=== PATIENT | female | born 1940 ===

== ENCOUNTER 2016-06-29 09:48 | Inpatient (IN) | payer OTHER ==
[2016-05-31 13:20] VITALS: BMI 27.0
--- NOTE | 2016-05-31 13:53 | PAT Medication Instructions ---
Service Date May 31, 2016. Current Home Medication List Aspirin (Aspirin Ec), 81 MG PO HS Calcium/Vitamin D (Os-Bipin 500 Plus D), 1 TAB PO QAM Fiber (Fiber Formula), 1 TAB PO BID Fish Oil ([place]-3), 1 CAP PO BID Vjlpgklussu-Cwioghpbgcu-Cex C- (Glucosamine Chondroitin), 1 TAB PO BID Levothyroxine Sodium (Levothyroxine Sodium), 150 MCG PO QAM Meloxicam (Mobic), 7.5 MG PO BID PRN for Pain Multivitamin (Multivitamin), 1 TAB PO QAM Triamcinolone Acet (Triamcinolone Acetonide), 0.1 % TOP PRN PRN for Affected Skin Folds Medication Instructions For Your Scheduled Surgery - Hold the following medications 10 days prior to surgery: Fish Oil ([place]-3), 1 CAP PO BID Ldfepvpedyg-Xssgrgbflgg-Kqh C- (Glucosamine Chondroitin), 1 TAB PO BID - Hold the following medications 24 hours prior to surgery: Triamcinolone Acet (Triamcinolone Acetonide), 0.1 % TOP PRN PRN for Affected Skin Folds - Hold the following medications the morning of surgery: Multivitamin (Multivitamin), 1 TAB PO QAM Fiber (Fiber Formula), 1 TAB PO BID Calcium/Vitamin D (Os-Bipin 500 Plus D), 1 TAB PO QAM Meloxicam (Mobic), 7.5 MG PO BID PRN for Pain (takes rarely- not told to stop by surgeon) - Take the following medications the morning of surgery with a sip of water: Levothyroxine Sodium (Levothyroxine Sodium), 150 MCG PO QAM - Take the following medications as scheduled the night before surgery: Fiber (Fiber Formula), 1 TAB PO BID Aspirin (Aspirin Ec), 81 MG PO HS If you have any questions please call us at [phone] or [phone] ( [place]) or [phone]
[2016-05-31 14:38] LABS: BASO % 0.6 %; BASO ABS # 0.04 K/uL (0-0.2); COMPLETE YES; EOS % 6.1 %; HEMATOCRIT 38.2 % (37-47); LYMPH % 32.8 %; LYMPH ABS # 2.22 K/uL (1.2-3.4); MEAN CELL VOLUME 87.8 fL (80-100); MEAN CORPUSCULAR HEMOGLOBIN 30.1 pg (25-34); MEAN CORPUSCULAR HGB CONC 34.3 g/dl (32-36); MEAN PLATELET VOLUME 11.5 fL (7.4-10.4); MONO % 6.9 %; NEUT % 53.6 %; PLATELET COUNT 212 K/uL (130-400); RED BLOOD COUNT 4.35 M/uL (4.2-5.4); WHITE BLOOD COUNT 6.77 K/uL (4.8-10.8)
[2016-05-31 14:47] LABS: PARTIAL THROMBOPLASTIN RATIO 1.1; PROTHROMBIN TIME (PATIENT) 10.7 SECONDS (9.0-12.0)
[2016-05-31 15:03] LABS: BUN/CREATININE RATIO 29.3 (10-20); CALCIUM 9.3 mg/dl (8.5-10.1); CREATININE 0.76 mg/dl (0.60-1.20); POTASSIUM 4.4 mmol/L (3.5-5.1)
--- NOTE | 2016-05-31 15:09 | DIAGNOSTIC IMAGING REPORT ---
CHEST PREADMISSION(PA/LAT) CLINICAL HISTORY: Preoperative chest COMPARISON STUDY: No previous studies for comparison. FINDINGS: The cardiac and mediastinal contours are normal. There is no evidence of focal pulmonary consolidation. There is no evidence of failure. No pleural effusions are visualized.[ IMPRESSION: No active disease in the chest. Electronically signed by: Kevin Membreno M.D. 05/31/2016 3:07 PM Dictated Date/Time: 05/31/2016 3:06 PM
--- NOTE | 2016-06-23 21:30 | HISTORY & PHYSICAL EXAMINATION ---
DATE OF ADMISSION: 06/29/2016 CHIEF COMPLAINT: Bilateral knee pain, right side greater than left. HISTORY OF PRESENT ILLNESS: This is a 76-year-old white female, who presents for surgical treatment of her right knee. She has got a long history of bilateral knee pain and discomfort, right side greater than left. She had been treated by my partner Dr. Aparicio. She has had an injection which provided some very temporary relief. She has also been on different anti-inflammatories including most recently Mobic which provides minimal relief. Pain has increased with weightbearing. There is global pain. Her knee gives out intermittently. She has fallen several times. She would like to have her right knee replaced. PAST MEDICAL HISTORY: 1. Hypothyroidism. 2. Arthritis. PAST SURGICAL HISTORY: Includes: 1. Tonsillectomy. 2. Bunion surgery bilaterally. 3. Ear surgery. ALLERGIES: None. CURRENT MEDICINES: Include: 1. Levothyroxine 150 mcg a day. 2. Aspirin 81 mg a day. 3. Calcium with D. 4. Fiber Formula. 5. Fish oil. 6. Glucosamine. 7. Multivitamin. 8. Meloxicam. SOCIAL HISTORY: This is a 76-year-old female. She is from [place]. She is . She does not smoke. FAMILY HISTORY: Noncontributory. REVIEW OF SYSTEMS: Negative for diabetes, neurologic problems, vascular problems or bleeding disorders. Denies any chest pain. No shortness of breath. No history of DVT or PE. PHYSICAL EXAMINATION: GENERAL: Reveals a healthy pleasant, middle-aged female. She looks to be in good health. HEENT: Benign. NECK: Supple. No lymphadenopathy. LUNGS: Clear to auscultation. HEART: Regular rate and rhythm. ABDOMEN: Soft, nontender and nondistended. EXTREMITIES: Grossly neurovascularly intact except as follows: Examination of the right leg reveals the patient walks independently. She has got varus alignment to her knee. She does limp on the right side. She has a little bit of varus thrust with weightbearing. She has got bony hypertrophy medially. Range of motion is 5 to 100. Fairly stiff knee with flexion. No instability. No pain with hip motion. X-RAYS: X-rays of the right knee were reviewed. It shows advanced right knee DJD. She has got complete loss of medial joint space. She has got osteophytes extensively on the medial side of her knee as well as she has got significant subchondral sclerosis. ASSESSMENT: A 76-year-old white female, with advanced bilateral knee degenerative joint disease, right side more symptomatic than the left. She has failed conservative treatments and would like to have her right knee replaced. PLAN: We are going to take her to the operating room and do a right total knee replacement. The risks and benefits of this procedure were explained to the patient including but not limited to DVT, PE, , infection, neurological injury, vascular injury, bleeding problems, failure to relieve her symptoms, incomplete relief of symptoms, need for further surgery in the future, fracture, leg length inequality, nerve palsy etc. The patient understands and desires to proceed. Informed consent was obtained. The patient [place] [facility]. She will likely go to outpatient therapy and not do home health. Her can take her to therapy. We did talk to her about stopping her Mobic 10 days preop. The patient had preoperative workup. Chest x-ray showed no acute disease. EKG was normal. Labs were all normal. We will proceed as above.
[~2016-06-29] VITALS: Ht 157.5 cm; Wt 68.6 kg
[2016-06-29] VITALS (7 sets, daily range): BP systolic 99–131; BP diastolic 58–74; PULSE 66–86; TEMP 36.2–36.5; O2SAT 95–100; Ht 157.5 cm; Wt 68.6 kg
[~2016-06-29 09:48] MED LIST: ACETAMINOPHEN 500 MG TAB PO SCH; ASPI81TA28 PO; BUPIVACAINE 0.25% 30 ML VIAL ONE; BUPIVACAINE 0.5 % 5 MG/1 ML PF 10ML VIAL ONE; BUPIVACAINE LIPOSOME 266 MG, BUPIVACAINE/EPINEPHRINE INJ 50 ML, SODIUM CHLORIDE 0.9% PF... INFIL SCH; CALC500C70 PO; CEFAZOLIN 2000 MG/60 ML D5W 60 ML IV SCH; FAMOTIDINE 20 MG TAB PO SCH; FIBE1CAP PO; GABAPENTIN 300 MG CAP PO SCH; GLUCTAB7 PO; LACTATED RINGER'S 1000ML 1,000 ML IV SCH; LACTATED RINGER'S 1000ML 500 ML IV ONE; LACTATED RINGER'S 1000ML IV SCH; LEVO150T9 PO; MELO7.5T5 PO; METOCLOPRAMIDE HCL 10 MG TAB PO SCH; MULT-506 PO; OMEG10007 PO; SCOPOLAMINE 1.5 MG TDSY TD SCH; TRANEXAMIC ACID INJ 1,000 MG in SODIUM CHLORIDE 0.9% 100ML 100 ML IV SCH; TRIA0.5C4 TOP
--- NOTE | 2016-06-29 10:43 | History & Physical Bridge Note ---
H&P Re-Evaluation Bridge Note: I have examined the patient, reviewed the History & Physical and in the interval since the performance of the History & Physical I have noted the following changes of clinical significance: No changes noted
[2016-06-29] MEDS ORDERED: MIDAZOLAM HCL 1 MG/ML 2ML VIAL ONE (11:37)
[2016-06-29] MEDS ORDERED: FENTANYL CITRATE INJ 50 MCG/1 ML 2 ML VIAL ONE (11:37)
[2016-06-29] MEDS ORDERED: AMX500 PO (11:44)
[2016-06-29] MEDS ORDERED: EpHEDrine SULFATE INJ 50 MG/ML AMP ONE (12:38)
[2016-06-29] MEDS ORDERED: BACITRACIN 50000 UNIT VIAL ONE (12:57)
[2016-06-29] MEDS ORDERED: SODIUM CHLORIDE 0.9% PF 50 ML VIAL ONE (12:57)
[2016-06-29] MEDS ORDERED: BUPIVACAINE/EPINEPHRINE 0.25% 1:200,000 30 ML VIAL ONE (12:57)
[2016-06-29] MEDS ORDERED: BUPIVACAINE LIPOSOME 1/3% 266 MG/20 ML VIAL INFIL ONE (12:57)
[2016-06-29] MEDS ORDERED: HYDROmorphone INJ 2 MG/ML SYR/VIAL IV PRN (13:15)
[2016-06-29] MEDS ORDERED: ATROPINE SULFATE 0.1 MG/ML 5ML SYR IV PRN (13:15)
[2016-06-29] MEDS ORDERED: ONDANSETRON INJ 2 MG/ML 2 ML VIAL IV PRN ×2 (13:15→15:00)
[2016-06-29] MEDS ORDERED: PHENYLEPHRINE 100MCG/ML 5ML SYR IV PRN (13:15)
[2016-06-29] MEDS ORDERED: EpHEDrine SULFATE INJ 50 MG/ML AMP IV PRN (13:15)
[2016-06-29] MEDS ORDERED: PROPOFOL IV EMULSION 10 MG/ML 20 ML VIAL IV ONE (13:33)
[2016-06-29] MEDS ORDERED: PHENYLEPHRINE HCL INJ 10 MG/ML VIAL ONE (14:00)
--- NOTE | 2016-06-29 14:49 | [facility] Post Operative Brief Note ---
Immediate Operative Summary Operative Date Jun 29, 2016. Pre-Operative Diagnosis Advanced Right Knee Degenerative Joint Disease Post-Operative Diagnosis Advanced Right Knee Degenerative Joint Disease Procedure(s) Performed Right Total Knee Arthroplasty Surgeon Dr. Meade Presentation Team Member Surgeon(s) ALLI Manley Estimated Blood Loss 50 ml Findings Right Knee DJD Fluids (cc crystalloids) 1000 cc Specimens A. Right Knee Bone and Tissue Drains None Anesthesia Spinal Complication(s) None Disposition Recovery Room / PACU
[2016-06-29] MEDS ORDERED: METOCLOPRAMIDE HCL INJ 5 MG/ML 2 ML VIAL IV PRN (15:00)
[2016-06-29] MEDS ORDERED: ZOLPIDEM TARTRATE 5 MG TAB PO PRN (15:00)
[2016-06-29] MEDS ORDERED: DiphenhydrAMINE HCL 50 MG/ML VIAL IV PRN (15:00)
[2016-06-29] MEDS ORDERED: SILVER SULFADIAZINE 1% CR 50 GM JAR EXT PRN (15:00)
[2016-06-29] MEDS ORDERED: ALUMINUM/MAGNESIUM/SIMETH (MAALOX MAX) 30 ML UDC PO PRN (15:00)
[2016-06-29] MEDS ORDERED: MAGNESIUM HYDROXIDE SUSP 30 ML UDC PO PRN (15:00)
[2016-06-29] MEDS ORDERED: BISACODYL 10 MG SUPP PR PRN (15:00)
[2016-06-29] MEDS ORDERED: MoRPHine SULFATE 2 MG/ML CARP IV PRN (15:00)
[2016-06-29] MEDS ORDERED: TRAMADOL HCL 50 MG TAB PO PRN (15:00)
--- NOTE | 2016-06-29 15:15 | DIAGNOSTIC IMAGING REPORT ---
TWO VIEWS RIGHT KNEE CLINICAL HISTORY: Postoperative examination. FINDINGS: AP and crosstable lateral portable views of the right knee are obtained. A right knee arthroplasty is in near anatomic alignment. There has been undersurface remodeling of the patella. No acute fracture is seen. There are expected postoperative changes around the knee including skin clips, soft tissue edema, and subcutaneous gas. IMPRESSION: Expected postoperative changes status post right knee arthroplasty. No acute fracture is seen. Electronically signed by: Iam Treadwell M.D. 06/29/2016 3:13 PM Dictated Date/Time: 06/29/2016 3:13 PM
--- NOTE | 2016-06-29 15:44 | Anesthesiology Progress Note ---
Anesthesia Post Op Note Date & Time Jun 29, 2016 at 15:45 Vital Signs Pain Intensity: 0 Vital Signs Past 12 Hours Date Time Temp Pulse Resp B/P Pulse Ox O2 Delivery O2 Flow Rate FiO2 06/29/16 15:25 36.5 82 18 113/59 98 Nasal Cannula 2 06/29/16 15:15 86 18 108/59 98 Nasal Cannula 2 06/29/16 15:05 83 18 114/62 99 Nasal Cannula 2 06/29/16 14:56 36.6 86 15 118/59 100 Nasal Cannula 2 06/29/16 10:16 36.4 75 18 131/62 95 Room Air Notes Mental Status: alert / awake / arousable, participated in evaluation Pt Amnestic to Procedure: Yes Nausea / Vomiting: adequately controlled Pain: adequately controlled Airway Patency, RR, SpO2: stable & adequate BP & HR: stable & adequate Hydration State: stable & adequate Anesthetic Complications: no major complications apparent
[2016-06-29] MEDS: CHECK SCOPOLAMINE PATCH PLACEMENT SCH ×2 (16:00→23:44)
--- NOTE | 2016-06-29 16:42 | OPERATIVE REPORT ---
DATE OF OPERATION: 06/29/2016 PREOPERATIVE DIAGNOSIS: Right knee degenerative joint disease. POSTOPERATIVE DIAGNOSIS: Same. PROCEDURE PERFORMED: Right cemented posterior stabilized total knee arthroplasty. SURGEON: Bienvenido Meade M.D. PROFESSOR OF MUSIC: Shaun Grewal PA-C. COMPLICATIONS: None. ESTIMATED BLOOD LOSS: 50 mL. FLUID REPLACEMENT: 1000 mL crystalloid fluid replacement. ANESTHESIA: Spinal with adductor canal block. DRAINS: None. SPECIMENS: Right knee sent for pathology. TOURNIQUET TIME: 52 minutes at 300 mmHg. OPERATIVE INDICATIONS: The patient is a 76-year-old very active female who has had a long history of bilateral knee pain and discomfort, right side greater than left. She has been through extensive conservative treatment by my partner Dr. Aparicio. Pain has become more debilitating. She failed conservative care and elected to proceed with right total knee arthroplasty. OPERATIVE FINDINGS: Operative findings revealed advanced right knee DJD. She had grade 4 [id number] disease of the medial and patellofemoral compartments. This was most severe in the medial side. She had eburnation of the medial femoral condyle with punctate bleeding of the medial femoral condyle. She had eburnation of the medial tibial plateau and large osteophytes off the medial side of the distal femur as well as the proximal tibia. Moderate size joint effusion. She had a fixed varus deformity to her knee. OPERATIVE IMPLANTS: Operative implants consisted of: 1. Biomet Vanguard size 62.5 right posterior stabilized femoral component. 2. Biomet size 67 tibial tray. 3. A 10 mm posterior stabilized polyethylene insert. 4. A 31 x 8 all poly patella. OPERATIVE PROCEDURE: The patient taken to the operating room, identified and placed on the operating table in supine position. All contact areas were appropriately padded. IV antibiotics were provided by anesthesia team. A spinal anesthetic had been implemented in the holding area. Mayo catheter was placed in sterile fashion. Right thigh tourniquet was then placed and the right lower extremity was then prepped and draped in the usual sterile fashion. The right leg was elevated and exsanguinated with Esmarch and tourniquet was placed at 300 mmHg. An anterior approach to the right knee was then performed through a longitudinal incision centered over the patella. Sharp dissection was carried down through the subcutaneous tissues down to the level of the extensor mechanism. A medial parapatellar arthrotomy incision was made. Some subperiosteal dissection was carried out medially. The fat pad was resected from beneath the patellar tendon. The lateral patellofemoral ligament was released. I elected to cut the patella first. The patella was cleaned of soft tissues. Patella thickness measured 18 mm and was cut down to 12. It was sized to a size 31 patella. The lateral osteophyte was removed. I did not drill lug holes until the end of the case. The patella was everted and knee was flexed. The osteophytes were taken off the distal femur. The ACL and PCL were then released from the distal femur and the tibia subluxated anteriorly. The external tibial alignment jig was then placed in the anterior face of the tibia and adjusted 14 mm medially. Proximal tibial cut was made to remove about a millimeter or 2 of bone from the most deficient aspect of the medial tibial plateau. Some osteophytes were taken off medial and posteromedially. Tibia was sized to a size 67. Attention was then drawn to the femur. The distal femur was entered with a sharp drill. Intramedullary canal was suctioned. A right 5 degree valgus cutting guide was placed. The distal femoral cutting block was pinned to take an additional 3 mm of bone off the distal femur. The femur was then sized to a size 62.5. We did downsize this just slightly. The AP cutting block was pinned parallel to the epicondylar axis, which was 3 degrees of external rotation. The anterior cut, anterior chamfer, posterior cut, posterior chamfer cuts were made. Box cutting guide was placed and adjusted slightly lateral and the box cut was made. The knee was flexed. The remnants of the medial and lateral meniscus were excised. The osteophytes were taken off the posterior aspect of the femur. Trial femoral component was placed. Tibial tray was pinned in maximum external rotation and the drill and stem punch were used to create defect in proximal tibia for the tibial tray. We then trialed the knee and the 10 mm insert fit most appropriately. Attention was then drawn back to the patella. The patella was now prepared and the lug holes were drilled. The 31 patella was placed. Knee was taken through range of motion and patella tracked nicely with no thumbs test. Attention was then drawn toward placement of permanent components. All trial components were removed. Bone plug was placed in the distal femur to limit blood loss. The wound was irrigated extensively. A double batch of Palacos G cement was mixed. A left size 62.5 posterior stabilized femoral component, size 67 tibial tray, 10 mm posterior stabilized polyethylene insert, and a 31 x 8 all poly patella then cemented in place. Knee was brought out into full extension until cement hardened. A final cement check was then performed. Pericapsular tissues were injected with a total of 100 mL of a combination of 20 mL of Exparel, 30 mL of normal saline, 50 mL of 0.25% Marcaine with epinephrine. The patient did receive 1 gram of tranexamic acid. The tourniquet was then let down for a tourniquet time of 52 minutes. Hemostasis was assured with use of electrocautery. The wounds were once again irrigated. The extensor mechanism was then closed with a combination of #1 PDS suture and #1 Vicryl suture in a [id number] fashion. Extensor mechanism was checked and found to be intact. Subcutaneous tissues were then closed with 2-0 Dexon suture in a buried interrupted fashion. Skin was then closed with skin betito. Leg was then cleaned and dried and a sterile dressing of Xeroform, 4 x 4, sterile cast padding and Octavio bandage were applied. The patient then transferred to the recovery room in stable condition. The patient tolerated the procedure well with no complications. All needle and sponge counts were correct at the end of the operation. I attest to the content of the Intraoperative Record and any orders documented therein. Any exceptio ns are noted below.
[2016-06-29] MEDS: D5W AND 1/2NSS + 20MEQ KCL 1,000 ML IV SCH (18:12)
[2016-06-29] MEDS: KETOROLAC TROMETHAMINE 15 MG/ML VIAL IV. SCH ×2 (18:14→23:44)
[2016-06-29] MEDS: FERROUS GLUCONATE 324 MG TAB PO SCH (18:34)
[2016-06-29] MEDS: ACETAMINOPHEN 500 MG TAB PO SCH ×2 (18:34→21:32)
[2016-06-29] MEDS: CEFAZOLIN IV 1,000 MG in DEXTROSE 5% 50ML 50 ML IV SCH (19:27)
[2016-06-29] MEDS ORDERED: TRANEXAMIC ACID INJ 1,000 MG in SODIUM CHLORIDE 0.9% 100ML 100 ML IV SCH (21:00)
[2016-06-29] MEDS: AMOXICILLIN 500 MG CAP PO SCH (21:02)
[2016-06-29] MEDS: DOCUSATE SODIUM 100 MG CAP PO SCH (21:02)
[2016-06-29] MEDS: ASPIRIN 325 MG ECTAB PO SCH (21:03)
[2016-06-29] MEDS: CALCIUM POLYCARBOPHIL 1 TAB PO SCH (21:03)
[2016-06-30] VITALS (7 sets, daily range): BP systolic 88–123; BP diastolic 51–69; PULSE 69–82; TEMP 36.2–36.7; O2SAT 94–99
[2016-06-30] MEDS: CEFAZOLIN IV 1,000 MG in DEXTROSE 5% 50ML 50 ML IV SCH (03:37)
[2016-06-30] MEDS: D5W AND 1/2NSS + 20MEQ KCL 1,000 ML IV SCH ×2 (03:37→13:00)
[2016-06-30] MEDS: LEVOTHYROXINE 150 MCG TAB PO SCH (05:31)
[2016-06-30] MEDS: ACETAMINOPHEN 500 MG TAB PO SCH ×3 (05:31→22:01)
[2016-06-30] MEDS: KETOROLAC TROMETHAMINE 15 MG/ML VIAL IV. SCH ×4 (05:32→23:51)
[2016-06-30 06:40] LABS: HEMATOCRIT 30.2 % (37-47); MEAN CORPUSCULAR HEMOGLOBIN 29.3 pg (25-34); MEAN CORPUSCULAR HGB CONC 34.1 g/dl (32-36); MEAN PLATELET VOLUME 10.5 fL (7.4-10.4); PLATELET COUNT 211 K/uL (130-400); RED BLOOD COUNT 3.51 M/uL (4.2-5.4); WHITE BLOOD COUNT 8.05 K/uL (4.8-10.8)
[2016-06-30 07:04] LABS: BUN/CREATININE RATIO 15.5 (10-20); CREATININE 0.82 mg/dl (0.60-1.20); POTASSIUM 4.1 mmol/L (3.5-5.1)
[2016-06-30] MEDS: CHECK SCOPOLAMINE PATCH PLACEMENT SCH ×3 (08:00→23:48)
[2016-06-30] MEDS: FERROUS GLUCONATE 324 MG TAB PO SCH ×3 (08:49→17:48)
[2016-06-30] MEDS: DOCUSATE SODIUM 100 MG CAP PO SCH ×2 (08:50→22:01)
[2016-06-30] MEDS: AMOXICILLIN 500 MG CAP PO SCH ×2 (08:50→22:00)
[2016-06-30] MEDS: CALCIUM 600MG + VIT D 400 IU TAB PO SCH (08:50)
[2016-06-30] MEDS: MULTIVITAMIN TAB PO SCH (08:51)
[2016-06-30] MEDS: CALCIUM POLYCARBOPHIL 1 TAB PO SCH ×2 (08:51→22:01)
[2016-06-30] MEDS: ASPIRIN 325 MG ECTAB PO SCH ×2 (08:51→22:01)
[2016-06-30] MEDS: PANTOprazole SOD 40 MG TAB PO SCH (08:52)
[2016-06-30] MEDS ORDERED: MULTIVITAMIN TAB PO SCH (09:00)
[2016-06-30] MEDS ORDERED: FRRG PO (19:23)
[2016-06-30] MEDS ORDERED: ULT50X PO (19:23)
[2016-06-30] MEDS ORDERED: ASPEC325 PO (19:23)
[2016-06-30] MEDS ORDERED: ACET-1138 PO (19:23)
--- NOTE | 2016-06-30 19:24 | Discharge Instructions ---
Discharge Instructions Admission Reason for Admission: Right Knee Degenerative Joint Disease Discharge Discharge Diagnosis / Problem: Right Knee Replacement Discharge Goals Goal(s): Decrease discomfort, Improve function, Increase independence, Improve disease control, Therapeutic intervention Activity Recommendations Activity Limitations: per Instructions/Follow-up section Weightbearing Status: Right weightbearing . Instructions / Follow-Up Instructions / Follow-Up ACTIVITY RECOMMENDATIONS: Physical Therapy: * You will go to physical therapy three times each week for four to six weeks after your surgery in order to regain your knee range of motion and to retrain your knee to work properly. * It is just as important to make sure you are getting your knee perfectly straight as it is to regain your knee bend. * Taking a pain pill an hour before therapy can help you have a more productive and comfortable therapy session. Home Exercise: * You were shown a series of exercises (heel props, heel slides, etc.) in the hospital. Do these exercises three to four times each day including the exercises you were shown in physical therapy. Walking: * Get up and walk several times each day. For the first four weeks, try not to stand or walk for more than one hour at a time. If you do stand or walk for more than one hour, you will not hurt anything, but your knee and leg will likely swell. * As you feel comfortable, you may change from the walker or crutches to a cane and then to independent walking. MEDICATIONS: New Medicine: * You will likely be taking one or more of these medications: 1. Tramadol/Ultram - A quick and shorter-acting pain medication. Take one to two tablets every four to six hours to lessen your pain. 2. Iron Sulfate - Take two times each day for the month after surgery to help you replace the blood lost during surgery. 3. Aspirin - Thins your blood to lessen the chance of forming a blood clot. * The most common side effects of pain medicine and iron are nausea and constipation. If nausea or constipation is too much of a problem or if you have any questions about your new medicines or doses, call [facility] at [phone]. We will try to help you manage these issues. VERY IMPORTANT TO READ AND REVIEW" Pain: * The immediate post-operative period after knee replacement surgery is often quite painful. * You are given a prescription for pain medicine. You should take it, as directed, when you need it, especially before physical therapy and before going to bed. Pain that interferes with sleep is very common and can last several months. * You will likely need pain medicine for the first four to six weeks. It will not stop all of the pain. The pain will lessen and as you feel better, you may change to milder pain medicine such as Tylenol. * The most common side effects of pain medicine are nausea and constipation, so don't take more than you need. SPECIAL CARE INSTRUCTIONS: TEDs/Elastic Stockings: * The white elastic stockings help limit swelling and prevent blood clots from forming in your legs. The more you wear them, the more they work. * Wear them for six weeks after knee replacement surgery and four weeks after partial knee replacement. Prevention of Infection: * Take antibiotics one hour before any dental cleaning, dental work, urological procedure, gastrointestinal procedure or any invasive surgery in order to prevent your new joint from getting infected. * You may get the antibiotics from the doctor performing the procedure or you may call our office at before and we will call in a prescription to the pharmacy of your choice. Things to Watch For: * Drainage from the incision site that occurs more than one week after your surgery. * Severely increased knee/leg pain or swelling. * Increased redness at the incision site. * Fever above 102 degrees Fahrenheit. * Unusual chest pain or shortness of breath. * Unusual pain or burning with urination. Call [facility] at with any of the above problems or if you have any questions about your medicines or recovery. FOLLOW UP VISIT: Make an appointment to see your doctor for approximately two weeks after surgery for a progress check and staple removal by calling the office at . Current Hospital Diet Patient's current hospital diet: Regular Diet Discharge Diet Recommended Diet: Regular Diet Procedures Procedures Performed: Right Total Knee Arthroplasty Pending Studies Studies pending at discharge: no Medical Emergencies . Who to Call and When: Medical Emergencies: If at any time you feel your situation is an emergency, please call [phone] immediately. . Non-Emergent Contact Non-Emergency issues call your: Surgeon . "Provider Documentation" section prepared by Bienvenido Meade. VTE Core Measure Inpt VTE Proph given/why not?: Other Anticoagulation, T.E.D. Stockings, SCD's
--- NOTE | 2016-06-30 19:38 | PROGRESS NOTE ---
DATE: 06/30/2016 SUBJECTIVE: A 76-year-old white female, postop day #1 from right knee replacement. She is doing well. Pain is controlled. She denies any chest pain or shortness of breath. Not feeling dizzy or lightheaded. OBJECTIVE: VITAL SIGNS: Temperature 36.7. Vital signs are stable. GENERAL: Reveals a pleasant, elderly female. She is sitting up in bed, awake, alert and oriented. LUNGS: Clear to auscultation. HEART: Regular rate and rhythm. ABDOMEN: Soft, nontender, nondistended. EXTREMITIES: Grossly neurovascularly intact except as follows. Examination of the right lower extremity reveals the leg to be well aligned. Dressing is clean, dry and intact. She can dorsiflex and plantarflex her foot appropriately. She is neurologically intact. LABORATORIES: Hemoglobin 10.3, hematocrit 30.2. Electrolytes are stable. ASSESSMENT: A 76-year-old white female postoperative day #1 from a right total knee replacement, doing well. Pain is controlled. She is neurologically intact. PLAN: 1. DVT prophylaxis including thigh-high TEDs, SCDs and aspirin twice a day. 2. PT/OT. Weightbearing as tolerated. Right total knee protocol. 3. Pain control. Doing well with current pain regimen. 4. Disposition: She is planning to be discharged home and do outpatient therapy once adequately recovered.
[2016-07-01] MEDS: ACETAMINOPHEN 500 MG TAB PO SCH (05:33)
[2016-07-01] MEDS: LEVOTHYROXINE 150 MCG TAB PO SCH (05:33)
[2016-07-01] MEDS: KETOROLAC TROMETHAMINE 15 MG/ML VIAL IV. SCH (05:34)
[2016-07-01 07:22] VITALS: BP 105/65; PULSE 74; TEMP 36.5; O2SAT 98
--- NOTE | 2016-07-01 07:46 | PROGRESS NOTE ---
DATE: 07/01/2016 SUBJECTIVE: Bibi is a 76-year-old lady is now postoperative day #2 from right total knee replacement. She is doing well this morning. Pain is controlled. No chest pain or shortness of breath. No lightheadedness. No other complaints today. OBJECTIVE: GENERAL: She is alert, oriented in no distress, resting supine in bed. VITAL SIGNS: Have been stable. She is slightly anemic yesterday with hemoglobin of 10.3. EXTREMITIES: Examination of right lower extremity dressing is clean, dry and intact. She is able to dorsiflex and plantarflex her toes appropriately. She is neurovascularly intact. ASSESSMENT: Postop day 2 from right total knee replacement. PLAN: 1. DVT prophylaxis. We will continue ED stockings, SCDs and aspirin b.i.d. 2. PT, OT. Weightbearing as tolerated. Total knee protocol. 3. Pain is currently controlled. 4. We will plan on discharge home today. She is going to do outpatient physical therapy. She was given a prescription for iron supplement for that as well as aspirin 325 mg b.i.d., which she will continue. She has tramadol and Tylenol written for pain as well. COLLEEN
[2016-07-01 08:07] VITALS: BP 105/65; PULSE 74; TEMP 36.5; O2SAT 98
[2016-07-01] MEDS: FERROUS GLUCONATE 324 MG TAB PO SCH (08:38)
[2016-07-01] MEDS: AMOXICILLIN 500 MG CAP PO SCH (08:38)
[2016-07-01] MEDS: CALCIUM 600MG + VIT D 400 IU TAB PO SCH (08:39)
[2016-07-01] MEDS: CALCIUM POLYCARBOPHIL 1 TAB PO SCH (08:39)
[2016-07-01] MEDS: DOCUSATE SODIUM 100 MG CAP PO SCH (08:39)
[2016-07-01] MEDS: ASPIRIN 325 MG ECTAB PO SCH (08:39)
[2016-07-01] MEDS: PANTOprazole SOD 40 MG TAB PO SCH (08:39)
[2016-07-01] MEDS: MULTIVITAMIN TAB PO SCH (08:39)
--- NOTE | 2016-07-07 14:16 | DISCHARGE SUMMARY ---
ADMITTING PHYSICIAN AND SURGEON: Dr. Meade. ADMITTING DIAGNOSIS: Right knee degenerative joint disease. SURGERY PERFORMED: Right total knee arthroplasty. SECONDARY DIAGNOSES: Hypothyroidism, arthritis. CONSULTS: None obtained. HISTORY AND PHYSICAL EXAMINATION: Well documented in the patient's chart. HOSPITAL COURSE: The patient was admitted on 06/29/2016 underwent total knee arthroplasty. She tolerated the procedure well. There were no complications. She was transferred to the PACU postoperatively and later to the orthopedic floor for further care. She was given Ancef for antibiotic prophylaxis, ED stockings, SCDs and aspirin for DVT prophylaxis. Hemoglobin, hematocrit and vital signs were monitored during her hospital stay and remained stable. She developed some postoperative anemia with a hemoglobin of 10.3; did not require any blood transfusions. There were no complications. By postoperative day 2, she was tolerating a general diet, pain was controlled with oral pain medicine. She was participating in physical therapy and had no signs or symptoms of deep vein thrombosis. On postop day 2, she was discharged home in good condition. She was given printed discharge instructions including prescriptions for extra strength Tylenol, aspirin 325 mg b.i.d., iron supplement and tramadol. Continue her home medications with the exception of her home dose of aspirin which was changed. Continue physical therapy, weightbearing as tolerated, ED stockings. Follow up in 10-12 days or sooner if there are problems or concerns.
== END 2016-07-01 10:21 | disposition home or self-care (01) | DRG 470 ==
LOC: ENRESERVDT → ENRESERVTM → C.ACU 09:48 → C.3E 10:43
PROVIDERS: ADMIT Orthopaedic Surgery Sports Medicine; ATTEND Orthopaedic Surgery Sports Medicine
PROC: 0SRC0J9 Replacement of Right Knee Joint with Synthetic Substitute, Cemented, Open Approach (ICD-10-PCS; principal; 2016-06-29 12:30)
DX: M17.0 Bilateral primary osteoarthritis of knee (principal); M25.461 Effusion, right knee; M21.162 Varus deformity, not elsewhere classified, left knee; D64.9 Anemia, unspecified; E03.9 Hypothyroidism, unspecified; Z91.81 History of falling; Z79.1 Long term (current) use of non-steroidal anti-inflammatories (NSAID); Z79.82 Long term (current) use of aspirin; Z79.899 Other long term (current) drug therapy

== ENCOUNTER → 2016-07-29 | Outpatient (CLI) | payer OTHER ==
[~2016-07-29] MED LIST changes: +ACET-1138 PO; -ACETAMINOPHEN 500 MG TAB PO SCH; +AMX500 PO; +ASPEC325 PO; -ASPI81TA28 PO; -BUPIVACAINE 0.25% 30 ML VIAL ONE; -BUPIVACAINE 0.5 % 5 MG/1 ML PF 10ML VIAL ONE; -BUPIVACAINE LIPOSOME 266 MG, BUPIVACAINE/EPINEPHRINE INJ 50 ML, SODIUM CHLORIDE 0.9% PF... INFIL SCH; -CEFAZOLIN 2000 MG/60 ML D5W 60 ML IV SCH; -FAMOTIDINE 20 MG TAB PO SCH; +FRRG PO; -GABAPENTIN 300 MG CAP PO SCH; -LACTATED RINGER'S 1000ML 1,000 ML IV SCH; -LACTATED RINGER'S 1000ML 500 ML IV ONE; -LACTATED RINGER'S 1000ML IV SCH; -METOCLOPRAMIDE HCL 10 MG TAB PO SCH; -SCOPOLAMINE 1.5 MG TDSY TD SCH; -TRANEXAMIC ACID INJ 1,000 MG in SODIUM CHLORIDE 0.9% 100ML 100 ML IV SCH; -TRIA0.5C4 TOP; +ULT50X PO
[2016-07-29 13:42] LABS: BASO % 0.9 %; BASO ABS # 0.06 K/uL (0-0.2); COMPLETE YES; HEMATOCRIT 36.7 % (37-47); IG% 0.3 %; LYMPH % 29.3 %; LYMPH ABS # 1.97 K/uL (1.2-3.4); MEAN CELL VOLUME 88.4 fL (80-100); MEAN CORPUSCULAR HEMOGLOBIN 28.7 pg (25-34); MEAN CORPUSCULAR HGB CONC 32.4 g/dl (32-36); MONO % 7.9 %; NEUT % 53.6 %; PLATELET COUNT 279 K/uL (130-400); RED BLOOD COUNT 4.15 M/uL (4.2-5.4); WHITE BLOOD COUNT 6.72 K/uL (4.8-10.8)
[2016-07-29 14:10] LABS: ALT/SGPT 42 U/L (12-78); AST/SGOT 40 U/L (15-37); BLOOD UREA NITROGEN 20 mg/dl (7-18); BUN/CREATININE RATIO 28.1 (10-20); CALCIUM 8.5 mg/dl (8.5-10.1); CARBON DIOXIDE 29 mmol/L (21-32); CHLORIDE 108 mmol/L (98-107); GLUCOSE 76 mg/dl (70-99); POTASSIUM 4.1 mmol/L (3.5-5.1); SODIUM 143 mmol/L (136-145)
[2016-07-29 14:19] LABS: ALB/GLOB RATIO 0.7 (0.9-2); ALKALINE PHOSPHATASE 72 U/L (45-117); CHOLESTEROL 218 mg/dl (0-200); CHOLESTEROL/HDL RATIO 2.9; HDL CHOLESTEROL 74 mg/dl; LDL CHOLESTEROL CALCULATED 127 mg/dl; TRIGLYCERIDES 86 mg/dl (0-150); VERY LOW DENSITY LIPOPROT CALC 17 mg/dl
== END | disposition home or self-care (01) ==
LOC: C.LABMFLN 10:42
PROVIDERS: ATTEND Family Medicine
DX: Z88.9 Allergy status to unspecified drugs, medicaments and biological substances (principal); E78.5 Hyperlipidemia, unspecified; E03.9 Hypothyroidism, unspecified

== ENCOUNTER → 2017-02-01 | Outpatient (CLI) | payer OTHER ==
[2017-02-01 14:04] LABS: CHOLESTEROL/HDL RATIO 2.7; THYROID STIMULATING HORMONE 4.31 uIu/ml (0.300-4.500)
[2017-02-01 14:05] LABS: BASO % 0.8 %; BASO ABS # 0.04 K/uL (0-0.2); COMPLETE YES; HEMATOCRIT 38.3 % (37-47); IG% 0.2 %; LYMPH % 36.2 %; LYMPH ABS # 1.81 K/uL (1.2-3.4); MEAN CELL VOLUME 88.7 fL (80-100); MEAN CORPUSCULAR HEMOGLOBIN 29.2 pg (25-34); MEAN CORPUSCULAR HGB CONC 32.9 g/dl (32-36); MEAN PLATELET VOLUME 11.4 fL (7.4-10.4); MONO % 9.2 %; NEUT % 44.6 %; PLATELET COUNT 224 K/uL (130-400); RED BLOOD COUNT 4.32 M/uL (4.2-5.4)
== END | disposition home or self-care (01) ==
LOC: C.LABMFLN 07:38
PROVIDERS: ATTEND Family Medicine
DX: M17.10 Unilateral primary osteoarthritis, unspecified knee (principal); E78.5 Hyperlipidemia, unspecified; E03.9 Hypothyroidism, unspecified

== ENCOUNTER → 2017-08-01 | Outpatient (CLI) | payer OTHER ==
[2017-08-01 14:49] LABS: ALBUMIN 3.3 gm/dl (3.4-5.0); ALT/SGPT 27 U/L (12-78); BLOOD UREA NITROGEN 16 mg/dl (7-18); CALCIUM 8.4 mg/dl (8.5-10.1); CARBON DIOXIDE 28 mmol/L (21-32); CHOLESTEROL 201 mg/dl (0-200); GLUCOSE 74 mg/dl (70-99); SODIUM 141 mmol/L (136-145)
[2017-08-01 15:00] LABS: ALKALINE PHOSPHATASE 84 U/L (45-117); AST/SGOT 31 U/L (15-37); LDL CHOLESTEROL CALCULATED 113 mg/dl; TOTAL PROTEIN 7.3 gm/dl (6.4-8.2)
== END | disposition home or self-care (01) ==
LOC: C.LABMFLN 09:33
PROVIDERS: ATTEND Family Medicine
DX: E78.5 Hyperlipidemia, unspecified (principal); E03.9 Hypothyroidism, unspecified